=== PATIENT | female | born 1970 | race Caucasian/White ===

== ENCOUNTER 2018-02-27 00:05 | Emergency (ER) | payer BC ==
[2018-02-27] MEDS ORDERED: ONDANSETRON 4 MG/2 ML VIAL ONE (00:13)
[2018-02-27] MEDS ORDERED: ONDANSETRON 4 MG/2 ML VIAL IVP ONE ×2 (00:15→00:33)
--- NOTE | 2018-02-27 00:31 | EDPHY ---
H & P Stated Complaint: n/v started 2 hours ago, states thinks is altitude sickness Time Seen by Provider: 02/27/18 00:15 HPI/ROS: CHIEF COMPLAINT: Vomiting and dry heaves, just landed from [place] ago. HISTORY OF PRESENT ILLNESS: This is a medically stable, essentially healthy 47-year-old female who arrived from [place] today via plane at approximately 6:00 p.m.. Earlier today she had felt entirely well, with no antecedent illness, able take her meals just fine. The plane flight as well as the [place] walk at the [facility] airport and the waiting at the curb went uneventfully. In fact she felt well enough to go out to dinner eating somewhat spicy meal at a [email or web address] restaurant. This is a brief layover as they will be leaving tomorrow morning at approximately 8:00 a.m. Flight for the [facility]. Beginning at approximately 9:00 p.m. She started having episodes of vomiting and retching with dry heaves. Only in the last little bit has it looks like food at one point there were red streaks. There has been no gabi hematemesis. She had no medications available to take for the nausea or the vomiting. There has been no diarrhea. She started developing some central chest discomfort when she was on her way over here from the house that she staying at. It is a nonpleuritic central chest discomfort and there is some also some pain in the back associated with this - there has been no fevers or diaphoresis. P: A nonpleuritic central chest discomfort Q: Achiness R: Some radiation to the left scapular area S: Mild to moderate, onset while coming here T: Onset while on the way here, some 3 hr after onset of the dry heaves and retching Travel: Not out of the country in the last 6 months, only today coming in from [place] Others: None Antibiotics: None Bad Food: None Bad Water: None Recent Surgery: None REVIEW OF SYSTEMS: Constitutional: No fever, no chills. Eyes: No discharge No diplopia ENT: No sore throat. Cardiovascular: No chest pain, no palpitations. No prior history of workup for palpitations or irregular heartbeat or murmurs. Respiratory: No cough, shortness of breath, or wheezing. Gastrointestinal: See above Genitourinary: No hematuria or frequency. Musculoskeletal: No back pain. Skin: No rashes. Neurological: No headache. A 10 system review of systems was performed and is negative except for the noted findings in the HPI. Source: Patient, Family - Personal History LMP (Females 10-55): Now - Medical/Surgical History Hx Asthma: No Hx Chronic Respiratory Disease: No Hx Diabetes: No Hx Cardiac Disease: No Hx Renal Disease: No Other PMH: knee surg, ear surg=hearing aids. - Family History Significant Family History: No pertinent family hx - Social History Smoking Status: Never smoked - Physical Exam Exam: General Appearance: Alert, unable to talk much as she is continually retching. Her skin is warm and dry without diaphoresis. Afebrile. Normal phonation. No respiratory distress. She is holding her mid chest and makes a tanacross with her palm as to the location of the discomfort. Eyes: Pupils equal and round no pallor or injection. No icterus ENT, Mouth: Mucous membranes moderately dry Pharynx without erythema or exudate. TM Clear. Neck: No adenopathy. Supple. No JVD. Trachea in midline. Respiratory: There are no retractions, lungs are clear to auscultation. Chest wall: Nontender to palpation. No crepitus. Cardiovascular: Regular rate, with occasional irregularities and rhythm, no murmur Abdomen: Soft and nontender, no masses, bowel sounds normal. . Neurological: Ox3. No motor weakness. Sensation intact. Gait nl. Skin: Warm and dry, no rashes. Musculoskeletal: No joint swelling. Extremities: No edema. Homans sign negative. No cords. Psychiatric: Normal affect. Patient is oriented X 3. There is no agitation Constitutional: Initial Vital Signs Temperature (C) 36.5 C 02/27/18 00:09 Heart Rate 72 02/27/18 00:09 Respiratory Rate 18 02/27/18 00:09 Blood Pressure 122/59 H 02/27/18 00:09 O2 Sat (%) 98 02/27/18 00:09 O2 Delivery Mode Room Air O2 (L/minute) 2 Allergies/Adverse Reactions: No Known Allergies Allergy (Unverified 02/27/18 00:09) Home Medications: Medication Instructions Recorded Ondansetron Odt [Zofran Odt 4 mg 4 - 8 mg PO Q8 PRN #10 tab 02/27/18 (*)] Pantoprazole Sodium [Protonix] 20 mg PO BID #14 tablet. 02/27/18 Medical Decision Making - Diagnostics EKG Interpretation: Review EKG EKG: Interpreted by me contemporaneously. Rhythm: Sinus rhythm with sinus arrhythmia. Heart rate 68 QTc 465 QRS: [normal] STT segment: [normal] T Waves: [Normal] Q waves [none] Summary: Normal sinus rhythm with sinus arrhythmia Imaging Results: Cest Film: 2 view series. Interpretation by me contemporaneously. Nl mediastinum, nl hearrt size no effusion, no pneumothorax or infiltrate. Normal chest. ED Course/Re-evaluation: Patient and was concerned this might be reaction to the altitude as she had a similar illness when she went to [place] that was [id number] ft. Initially an IV was started for hydration for volume depletion and initially given Zofran 4 mg IV. However, this need to be repeated because of in tract herbal vomiting. 1243-continues to vomit despite 8 mg of IV Zofran. At this point we are adding the Reglan 10 mg IV 12:50-I was called back in the room, her burning discomfort going up into her throat as if she was having some trouble. When I talked with her at this point in time she was able to phonate and talk to me and there is no signs of inspiratory stridor. Lung sounds remain clear. No Ai crunch. IV of 0.5 mg Ativan arranged, as well as IV pantoprazole. 01:20 The last two vomitus had large chucks of meat with the most recent looking like it was in a pool of partially digested blood - this is tested. 02:00 - Vomitus is noted to be Hemocult Positive, though pt no longer vomiting will check labs and recommend hospitalization. Apprpriately sedated and easily aroused. Labs ordered. 02:30 - Hypokalemia - I suspect mostly from the cathecholamines from when she arrived. 02:35 - H&H stable - hospital medicine paged. 02:50 - D/w hospitalist, then family. Reticent for admission, will think it over. Explained at length risk and benfit of hospitalization vs trying outpatient rx. Air travel strictly forbidden until Mar 02. Ultimately, she had no wanted admission. I had explained in detail the potential risks syncope, falls, injury, and . She will be welcome should she return have 2nd thoughts or have worsening symptomatology. In the interim I will manage her with Zofran ODT along with Ativan backup for refractory nausea and p.o. Prevacid. She is to follow up with her family doctor immediately upon returning to [place]. Differential Diagnosis: Differential diagnosis includes, but is not limited to: Gastroenteritis, dehydration, pancreatitis, renal colic, cholecystitis, appendicitis, gastritis, mesenteric adenitis, food poisoning, bacterial dysentery. - Data Points Laboratory Results: 02/27/18 02:12 POC Sodium 144 mEq/L mEq/L (135-145) POC Potassium 2.9 mEq/L L mEq/L (3.3-5.0) POC Chloride 102.0 mEq/L mEq/L (97-110) POC Total CO2 27 mEq/L mEq/L (22-31) POC BUN 18 mg/dL mg/dL (7-23) POC Creatinine 0.8 mg/dL mg/dL (0.6-1.0) POC Glucose 108 mg/dL H mg/dL (70-100) POC Calcium 9.3 mg/dL mg/dL (8.5-10.4) Medications Given: Discontinued Medications Sodium Chloride (Ns) 1,000 mls @ 0 mls/hr IV EDNOW ONE; Wide Open PRN Reason: Protocol Stop: 02/27/18 00:36 Last Admin: 02/27/18 01:07 Dose: 1,000 mls Lorazepam (Ativan Injection) 0.5 mg IVP EDNOW ONE Stop: 02/27/18 00:50 Last Admin: 02/27/18 01:05 Dose: 0.5 mg Lorazepam (Ativan 1 Mg Prepack#4) 1 btl TAKEHOME EDNOW ONE Stop: 02/27/18 03:36 Last Admin: 02/27/18 03:35 Dose: 1 btl Metoclopramide HCl (Reglan Injection) 10 mg IVP EDNOW ONE Stop: 02/27/18 00:43 Last Admin: 02/27/18 00:47 Dose: 10 mg Ondansetron HCl (Zofran) 4 mg IVP EDNOW ONE Stop: 02/27/18 00:16 Last Admin: 02/27/18 00:17 Dose: 4 mg Ondansetron HCl (Zofran) 4 mg IVP ONCE ONE Stop: 02/27/18 00:34 Last Admin: 02/27/18 00:34 Dose: 4 mg Ondansetron HCl (Zofran Odt 4 Mg Prepack#2) 1 btl TAKEHOME EDNOW ONE Stop: 02/27/18 03:36 Last Admin: 02/27/18 03:35 Dose: 1 btl Pantoprazole Sodium (Protonix) 40 mg IVP EDNOW ONE Stop: 02/27/18 00:53 Last Admin: 02/27/18 01:17 Dose: 40 mg Point of Care Test Results: CBC CBC Collection Date 02/27/18 CBC Collection Time 00:20 WBC 7.1 RBC 4.31 HGB 13.5 HCT 40.1 PLT 174 Neut # 5.0 Neut 69.3 LYMPH # 1.8 LYMPH 25.8 Other WBC # 0.3 Other WBC 4.9 MCV 93.0 Chemistry 02/27/18 02:12 POC Sodium 144 mEq/L mEq/L (135-145) POC Potassium 2.9 mEq/L L mEq/L (3.3-5.0) POC Chloride 102.0 mEq/L mEq/L (97-110) POC Total CO2 27 mEq/L mEq/L (22-31) POC BUN 18 mg/dL mg/dL (7-23) POC Creatinine 0.8 mg/dL mg/dL (0.6-1.0) POC Glucose 108 mg/dL H mg/dL (70-100) POC Calcium 9.3 mg/dL mg/dL (8.5-10.4) Influenza PCR Flu Nasal Swab Collection Date 02/27/18 Flu Nasal Swab Collection Time 00:25 Influenza A Result Not Detected Influenza B Result Not Detected Departure - Departure Disposition: Home, Routine, Self-Care Clinical Impression: Upper GI bleeding, Hypokalemia Vomiting Qualifiers: Vomiting type: hematemesis Nausea presence: with nausea Qualified Code(s): K92.0 - Hematemesis Condition: Fair Instructions: Lorazepam (By mouth), Ondansetron (By mouth), Pantoprazole (By mouth), Gastroenteritis (ED), Hematemesis (ED), Rachel-Porter Syndrome (ED) Additional Instructions: Come back at any time. Especially if you start seen anymore vomitus or blood in the vomitus, come back. Also return if you start seen very dark or black colored stools. Furthermore, if he started feeling faint or profoundly weak than you need to return. Your allowed to try clear liquids at around noon this morning. For you're nausea try Zofran or the Ativan Continue the Prevacid, your 1st dose was at 2:00 a.m. Next dose is at noon today No flying until Mar 01, and only if your feeling back to normal. Referrals: Patient,NotPresent [Primary Care Provider] - As per Instructions Stand Alone Forms: Airline Excuse Prescriptions: Ondansetron Odt [Zofran Odt 4 mg (*)] 4 - 8 mg PO Q8 PRN #10 tab PRN Reason: nausea or vomiting Pantoprazole Sodium [Protonix] 20 mg PO BID #14 tablet.
[2018-02-27] MEDS ORDERED: NS 1,000 ML IV ONE ×3 (00:35→22:45)
[2018-02-27] MEDS ORDERED: METOCLOPRAMIDE 10 MG/2 ML VIAL IVP ONE (00:42)
[2018-02-27] MEDS ORDERED: LORazepam 2 MG/ML INJ IVP ONE (00:49)
[2018-02-27] MEDS ORDERED: LORazepam 2 MG/ML INJ ONE (00:50)
[2018-02-27] MEDS ORDERED: PANTOPRAZOLE SODIUM 40 MG VIAL IVP ONE (00:52)
--- NOTE | 2018-02-27 02:19 | CPEKG ---
Test Reason : OPEN Blood Pressure : / mmHG Vent. Rate : 068 BPM Atrial Rate : 080 BPM P-R Int : 169 ms QRS Dur : 093 ms QT Int : 437 ms P-R-T Axes : 081 068 072 degrees QTc Int : 465 ms Sinus rhythm with sinus arrythmia. Confirmed by Constantino Harris ([id number]) on 02/27/2018 2:19:17 AM Referred By: Confirmed By:Constantino Harris
[2018-02-27] MEDS ORDERED: LORAZEPAM 1 MG PREPACK#4 BTL TAKEHOME ONE (03:35)
[2018-02-27] MEDS ORDERED: ONDANSETRON 4MG PREPACK#2 BTL TAKEHOME ONE (03:35)
[2018-02-27 04:05] VITALS: BP 110/58
== END 2018-02-27 04:02 | disposition home or self-care (01) ==
LOC: CED 00:05
DX: K92.2 Gastrointestinal hemorrhage, unspecified (principal); E87.6 Hypokalemia; K92.0 Hematemesis; E86.9 Volume depletion, unspecified
CPT/HCPCS: 71046-PO; 80048-PO; 96374; J2060; J2405; J2765